=== PATIENT | male | born 1940 | race Caucasian/White ===

== ENCOUNTER → 2020-03-26 | Outpatient (CLI) | payer MEDICARE ==
[~2020-03-26] MED LIST: ALFUZOSIN PO; LISI1TAB32 PO
== END | disposition home or self-care (01) ==
LOC: OIH 11:02
PROVIDERS: ATTEND Neurological Surgery
DX: M47.26 Other spondylosis with radiculopathy, lumbar region (principal); M41.06 Infantile idiopathic scoliosis, lumbar region
CPT/HCPCS: 72114

== ENCOUNTER → 2020-04-08 | Outpatient (CLI) | payer MEDICARE | END | disposition home or self-care (01) | LOC: RAH 13:00 | PROVIDERS: ATTEND Neurological Surgery | DX: M54.5 Low back pain (principal) | CPT/HCPCS: 78306; A9503 ==